=== PATIENT | female | born 1980 ===

== ENCOUNTER 2019-09-22 00:12 | Inpatient (IN) | payer SELFPAY ==
[2019-09-22] MEDS ORDERED: Nalbuphine 10 MG/1 ML Vial IVPUSH PRN (00:19)
[2019-09-22] MEDS ORDERED: Terbutaline 1 MG/ML SDV SUBCUT PRN (00:19)
[2019-09-22] MEDS ORDERED: Butorphanol 1 MG/ML SDV IVPUSH PRN (00:19)
[2019-09-22] MEDS ORDERED: Tranexamic Acid 1,000 MG in Sodium Chloride 0.9% 100 ML IV PRN (00:19)
[2019-09-22] MEDS ORDERED: Carboprost Tromethamine 250 MCG/1 ML Amp IM PRN (00:19)
[2019-09-22] MEDS ORDERED: Misoprostol 200 MCG Tab PO PRN (00:19)
[2019-09-22] MEDS ORDERED: Misoprostol 25 MCG (1/4 of 100 MCG) Tab VAG PRN ×2 (00:19)
[2019-09-22] MEDS ORDERED: Water For Irrigation,Sterile 1,000 ML Container IRR PRN (00:19)
[2019-09-22] MEDS ORDERED: Lidocaine 1% 50 ML MDV INJECT PRN (00:19)
[2019-09-22] MEDS ORDERED: Methylergonovine 0.2 MG/1 ML Amp IM PRN (00:19)
[2019-09-22] MEDS ORDERED: Sodium Chloride 0.9% 2.5 ML Syringe FLUSH PRN (00:25)
[2019-09-22] MEDS ORDERED: Sodium Chloride 0.9% 10 ML SDV IV PRN (00:25)
[2019-09-22] MEDS ORDERED: Sodium Chloride 0.9% 10 ML Syringe FLUSH PRN (00:25)
[2019-09-22] MEDS ORDERED: Oxytocin/0.9 % Sodium Chloride 30 UNIT/500 ML BAG IV SCH ×2 (00:30)
[2019-09-22] MEDS ORDERED: Lactated Ringers 1,000 ML IV SCH (00:30)
[2019-09-22] MEDS ORDERED: Misoprostol 25 MCG (1/4 of 100 MCG) Tab PO SCH (00:45)
[2019-09-22] MEDS ORDERED: hydrOXYzine Pamoate 25 MG Cap PO SCH (09:00)
--- NOTE | 2019-09-22 09:32 | PCM.LDHP ---
L&D History of Present Illness - General Date of Service: 09/22/19 Admit Problem/Dx: Patient Status Order with Admit Dx/Problem 09/22/19 00:20 Patient Status [ADT] Routine Admission Diagnosis/Problem Admission Diagnosis/Problem - planned 09/22/19 09:27 Mary is a 39 yo at 40.1 weeks gestation (OBI 09/21/2019) that presents today for elective IOL. O pos, RI, GBS neg, COVID neg. is at the bedside as support person and seismic interpreter per patient request. Pertinent history includes: AMA, obesity, infertility, IVF. NKDA. Medications: PNV, 81 mg aspirin. Patient denies any complaints or concerns at this time except intermittent contraction pain 11/03, lower abdomen. Patient denies LOF, vaginal bleeding; reports ample movement at this time. 09/22/19 09:31 Source of Information: Patient History Limitations: Reports: No Limitations - History of Present Illness Location, : Reports: Abdomen, Uterus Quality: Reports: Sharp Pain Score: 9 Improves with: Reports: Medication, Movement, Other (Hydrotherapy) Worsens with: Reports: Immobilization - Related Data Allergies/Adverse Reactions: Allergies Allergy/AdvReac Type Severity Reaction Status Date / Time No Known Allergies Allergy Verified 09/22/19 01:21 Home Medications: Home Meds Aspirin [Adult Low Dose Aspirin EC] 81 mg PO DAILY 09/22/19 [History] No122/Iron/Folic Acid [ Multi Tablet] 1 tab PO DAILY 09/22/19 [History] Past Medical History - Past Health History Medical/Surgical History: Denies Medical/Surgical History HEENT History: Reports: None Cardiovascular History: Reports: None Respiratory History: Reports: None Gastrointestinal History: Reports: None Genitourinary History: Reports: None 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: Other (See Below) : 1 Para: 0 LMP (Approximate): Other OB/BYN History: Hx of infertility; Hx of hysteroscopy Musculoskeletal History: Reports: None Neurological History: Reports: None Psychiatric History: Reports: None Endocrine/Metabolic History: Reports: Obesity/BMI 30+ Hematologic History: Reports: None Immunologic History: Reports: None Dermatologic History: Reports: None - Infectious Disease History Infectious Disease History: Reports: None - Past Surgical History Female Surgical History: Reports: Other (See Below) (Hysteroscopy; polyp removal) Social & Family History - Family History Family Medical History: Noncontributory Cardiac: Reports: Hypertension Other Cardiac Family History: Mother has hypertension - Tobacco Use Smoking Status *Q: Never Smoker Second Hand Smoke Exposure: No - Caffeine Use Caffeine Use: Reports: None - Alcohol Use Alcohol Use History: No - Recreational Drug Use Recreational Drug Use: No - Sexual History Sexual History: Reports: Sexually Active H&P Review of Systems - Review of Systems: Review Of Systems: Comprehensive ROS is negative, except as noted in HPI. General: Reports: No Symptoms HEENT: Reports: No Symptoms Pulmonary: Reports: No Symptoms Cardiovascular: Reports: No Symptoms Gastrointestinal: Reports: No Symptoms Genitourinary: Reports: No Symptoms Musculoskeletal: Reports: No Symptoms Skin: Reports: No Symptoms Psychiatric: Reports: No Symptoms Neurological: Reports: No Symptoms Hematologic/Lymphatic: Reports: No Symptoms Immunologic: Reports: No Symptoms L&D Exam - Exam Exam: See Below - Vital Signs Vital Signs: T 97.6, BP 139/97 (107), P 77, O2 100% on RA Weight: 529 lb 1.75 oz - OB Specific Fundal Height In cm: 41 Contraction Duration (sec): 60-80 Contraction Frequency (min): 2-4 Contraction Intensity: Mild to Moderate Movement: Active Heart Tones: Present Heart Tones per Min: 130 Heart Rate (FHR) Variability: Moderate (6-25 bmp) Presentation: Vertex - Alexander Score Alexander Score Cervix Position: Posterior Alexander Score Consistency: Soft Alexander Score Effacement: 51-70% Alexander Score Dilation: 1-2 cm Alexander Score 's Station: -3 Alexander Score Total: 5 - Exam General: Alert, Oriented, Cooperative HEENT: Conjunctiva Clear, Hearing Intact, Mucosa Moist & [place], Nares Patent, PERRLA Neck: Supple Lungs: Clear to Auscultation, Normal Respiratory Effort Cardiovascular: Regular Rate, Regular Rhythm GI/Abdominal Exam: Normal Bowel Sounds, Soft, Non-Tender, No Organomegaly, No Distention Rectal Exam: Normal Rectal Tone, Deferred Genitourinary: Normal external exam, Normal bimanual exam, Vaginal discharge (Bloody show/mucous, small) Back Exam: Normal Inspection, Full Range of Motion Extremities: Normal Inspection, Normal Range of Motion, Non-Tender, No Pedal Edema, Normal Capillary Refill Skin: Warm, Dry, Intact Neurological: Cranial Nerves Intact, Reflexes Equal Bilateral Psychiatric: Alert, Normal Affect, Normal Mood - Patient Data Lab Results Last 24 hrs: Laboratory Results - last 24 hr 09/22/19 09/22/19 09/22/19 Range/Units 00:40 00:40 00:45 WBC 9.19 (4.0-11.0) K/uL RBC 4.35 (4.30-5.90) M/uL Hgb 13.6 (12.0-16.0) g/dL Hct 41.2 (36.0-46.0) % MCV 94.7 (80.0-98.0) fL MCH 31.3 (27.0-32.0) pg MCHC 33.0 (31.0-37.0) g/dL RDW Std Deviation 48.0 (28.0-62.0) fl RDW Coeff of Shameka 14 (11.0-15.0) % Plt Count 172 (150-400) K/uL MPV 13.10 H (7.40-12.00) fL Nucleated RBC % 0.0 /100WBC Nucleated RBCs # 0 K/uL COVID-19 ([facility]) NEGATIVE (NEGATIVE) Blood Type O POSITIVE Antibody Screen NEGATIVE Result Diagrams: 09/22/19 00:40 - Problem List (1) Encounter for induction of labor SNOMED Code(s): 420376654 ICD Code: Z34.90 - ENCNTR FOR SUPRVSN OF NORMAL , UNSP, UNSP TRIMESTER Status: Acute Priority: High Current Visit: Yes (2) 40 weeks gestation of SNOMED Code(s): 12274094 ICD Code: Z3A.40 - 40 WEEKS GESTATION OF Status: Acute Priority: High Current Visit: Yes Problem List Initiated/Reviewed/Updated: Yes Orders Last 24hrs: Active Orders 24 hr Category Date Time Status Patient Status [ADT] Routine ADT 09/22/19 00:20 Active Communication Order [RC] ASDIRECTED Care 09/22/19 00:20 Active Communication Order [RC] ASDIRECTED Care 09/22/19 00:20 Active Communication Order [RC] ASDIRECTED Care 09/22/19 00:20 Active Heart Tones [RC] CONTINUOUS Care 09/22/19 00:20 Active Non Stress Test [RC] PER UNIT ROUTINE Care 09/22/19 00:20 Active May Shower [RC] ASDIRECTED Care 09/22/19 00:20 Active Notify Provider [RC] PRN Care 09/22/19 00:20 Active Notify Provider [RC] PRN Care 09/22/19 00:20 Active Notify Provider [RC] PRN Care 09/22/19 00:20 Active Notify Provider [RC] STAT Care 09/22/19 00:20 Active Oxygen Therapy [RC] ASDIRECTED Care 09/22/19 00:20 Active Up ad Marianela [RC] ASDIRECTED Care 09/22/19 00:20 Active Vaginal Exam [RC] PRN Care 09/22/19 00:20 Active Vital Signs [RC] PER UNIT ROUTINE Care 09/22/19 00:20 Active Regular Diet [DIET] Diet 09/22/19 Breakfast Active RPR (SYPHILIS SERO) W/ RFLX [REF] Routine Lab 09/22/19 00:40 Received Butorphanol [Stadol] Med 09/22/19 00:19 Active 1 mg IVPUSH Q1H PRN Carboprost Tromethamine [Hemabate DS] Med 09/22/19 00:19 Active 250 mcg IM ASDIRECTED PRN Lactated Ringers [Ringers, Lactated] 1,000 ml Med 09/22/19 00:30 Active IV ASDIRECTED Lidocaine 1% [Xylocaine 1%] Med 09/22/19 00:19 Active 50 ml INJECT ONETIME PRN Methylergonovine [Methergine] Med 09/22/19 00:19 Active 0.2 mg IM ASDIRECTED PRN Nalbuphine [Nubain] Med 09/22/19 00:19 Active 10 mg IVPUSH Q1H PRN Oxytocin/0.9 % Sodium Chloride [Oxytocin 30 Unit/500 ML Med 09/22/19 00:30 Active -NS] 30 unit in 500 ml IV TITRATE Oxytocin/0.9 % Sodium Chloride [Oxytocin 30 Unit/500 ML Med 09/22/19 00:30 Active -NS] 30 unit in 500 ml IV TITRATE Sodium Chloride 0.9% [Normal Saline] Med 09/22/19 00:25 Active 10 ml IV ASDIRECTED PRN Sodium Chloride 0.9% [Saline Flush] Med 09/22/19 00:25 Active 10 ml FLUSH ASDIRECTED PRN Sodium Chloride 0.9% [Saline Flush] Med 09/22/19 00:25 Active 2.5 ml FLUSH ASDIRECTED PRN Terbutaline [Brethine] Med 09/22/19 00:19 Active 0.25 mg SUBCUT ASDIRECTED PRN Tranexamic Acid [Cyklokapron] 1,000 mg Med 09/22/19 00:19 Active Sodium Chloride 0.9% [Normal Saline] 100 ml IV ONETIME Water For Irrigation,Sterile [Sterile Water for Med 09/22/19 00:19 Active Irrigation] 1,000 ml IRR ASDIRECTED PRN hydrOXYzine pamoate [Vistaril] Med 09/22/19 09:00 Active 50 mg PO .ONCE miSOPROStoL [Cytotec] Med 09/22/19 00:19 Active 200 mcg PO ONETIME PRN miSOPROStoL [Cytotec] Med 09/22/19 00:45 Active 25 mcg PO Q4H miSOPROStoL [Cytotec] Med 09/22/19 00:19 Active 25 mcg VAG ONETIME PRN miSOPROStoL [Cytotec] Med 09/22/19 00:19 Active 25 mcg VAG Q4H PRN Scalp Electrode [WOMSER] Per Unit Routine Oth 09/22/19 00:20 Ordered Medication Administration Instruction [OM.PC] Q3H Oth 09/22/19 00:30 Ordered Peripheral IV Insertion Adult [OM.PC] Routine Oth 09/22/19 00:20 Ordered Resuscitation Status Routine Resus Stat 09/22/19 00:19 Ordered Medication Orders Butorphanol Tartrate (Stadol) 1 mg IVPUSH Q1H PRN PRN Reason: Pain Carboprost Tromethamine (Hemabate Ds) 250 mcg IM ASDIRECTED PRN PRN Reason: Post Hemorrhage Hydroxyzine Pamoate (Vistaril) 50 mg PO .ONCE HOLLI Oxytocin/Sodium Chloride (Oxytocin 30 Unit/500 Ml-Ns) 30 unit in 500 mls @ 500 mls/hr IV TITRATE HOLLI Tranexamic Acid 1,000 mg/ (Sodium Chloride) 110 mls @ 660 mls/hr IV ONETIME PRN PRN Reason: Bleeding Oxytocin/Sodium Chloride (Oxytocin 30 Unit/500 Ml-Ns) 30 unit in 500 mls @ 2 mls/hr IV TITRATE HOLLI; Protocol Lactated Ringer's (Ringers, Lactated) 1,000 mls @ 150 mls/hr IV ASDIRECTED HOLLI Lidocaine HCl (Xylocaine 1%) 50 ml INJECT ONETIME PRN PRN Reason: Laceration repair Methylergonovine Maleate (Methergine) 0.2 mg IM ASDIRECTED PRN PRN Reason: Post Hemorrhage Misoprostol (Cytotec) 200 mcg PO ONETIME PRN PRN Reason: Post Hemorrhage Misoprostol (Cytotec) 25 mcg VAG ONETIME PRN PRN Reason: Cervical Ripening Last Admin: 09/22/19 01:51 Dose: 25 mcg Documented by: LUKE Misoprostol (Cytotec) 25 mcg VAG Q4H PRN PRN Reason: Cervical Ripening Last Admin: 09/22/19 05:50 Dose: 25 mcg Documented by: LUKE Misoprostol (Cytotec) 25 mcg PO Q4H HOLLI Nalbuphine HCl (Nubain) 10 mg IVPUSH Q1H PRN PRN Reason: Pain (severe 7-10) Sodium Chloride (Saline Flush) 10 ml FLUSH ASDIRECTED PRN PRN Reason: Keep Vein Open Sodium Chloride (Saline Flush) 2.5 ml FLUSH ASDIRECTED PRN PRN Reason: Keep Vein Open Sodium Chloride (Normal Saline) 10 ml IV ASDIRECTED PRN PRN Reason: IV Use Sterile Water (Sterile Water For Irrigation) 1,000 ml IRR ASDIRECTED PRN PRN Reason: delivery Terbutaline Sulfate (Brethine) 0.25 mg SUBCUT ASDIRECTED PRN PRN Reason: Tacysystole Assessment/Plan Comment:: SVE 1-2/70/-3 per RN. Vertex via Tawanda's today, confirmed vertex via TAUS in office 09/20/2019. FHR Cat I, contraction pattern adequate at this time, intermittent monitoring appropriate at this time. Patient may ambulate, eat, hydrate, and hydrotherapy as desired. RN to give Vistaril 50 mg for therapeutic rest in early labor. Continue with cytotec to pitocin induction of labor per orders. May receive epidural between 5-[address] Cline notified and agreeable to POC.
[2019-09-22] MEDS ORDERED: Bupivicaine/fentaNYL/NS 250 ML ONE (11:39)
--- NOTE | 2019-09-22 12:37 | PCM.PREANE ---
Preanesthetic Assessment - Procedure Proposed Procedure: continuous labor epidural - Anesthesia/Transfusion/Family Hx Anesthesia History: No Prior Anesthesia Transfusion History: No Prior Transfusion(s) - Review of Systems General: No Symptoms Pulmonary: No Symptoms Cardiovascular: No Symptoms Gastrointestinal: No Symptoms Neurological: No Symptoms Other: Reports: None - Physical Assessment Height: 5 ft 8.11 in Weight: 108.862 kg ASA Class: 2 Mental Status: Alert & Oriented x3 Dentition: Reports: Normal Dentition ROM/Head Extension: Full Lungs: Clear to Auscultation, Normal Respiratory Effort Cardiovascular: Regular Rate, Regular Rhythm - Lab Values: Laboratory Last Values WBC 9.19 K/uL (4.0-11.0) 09/22/19 00:40 RBC 4.35 M/uL (4.30-5.90) 09/22/19 00:40 Hgb 13.6 g/dL (12.0-16.0) 09/22/19 00:40 Hct 41.2 % (36.0-46.0) 09/22/19 00:40 MCV 94.7 fL (80.0-98.0) 09/22/19 00:40 MCH 31.3 pg (27.0-32.0) 09/22/19 00:40 MCHC 33.0 g/dL (31.0-37.0) 09/22/19 00:40 RDW Std Deviation 48.0 fl (28.0-62.0) 09/22/19 00:40 RDW Coeff of Shameka 14 % (11.0-15.0) 09/22/19 00:40 Plt Count 172 K/uL (150-400) 09/22/19 00:40 MPV 13.10 fL (7.40-12.00) H 09/22/19 00:40 Nucleated RBC % 0.0 /100WBC 09/22/19 00:40 Nucleated RBCs # 0 K/uL 09/22/19 00:40 COVID-19 ([facility]) NEGATIVE (NEGATIVE) 09/22/19 00:45 Blood Type O POSITIVE 09/22/19 00:40 Antibody Screen NEGATIVE 09/22/19 00:40 - Allergies Allergies/Adverse Reactions: Allergies Allergy/AdvReac Type Severity Reaction Status Date / Time No Known Allergies Allergy Verified 09/22/19 01:21 - Acknowledgements Anesthesia Type Planned: Epidural Pt an Appropriate Candidate for the Planned Anesthesia: Yes Alternatives and Risks of Anesthesia Discussed w Pt/Guardian: Yes Pt/Guardian Understands and Agrees with Anesthesia Plan: Yes PreAnesthesia Questionnaire - Past Health History Medical/Surgical History: Denies Medical/Surgical History HEENT History: Reports: None Cardiovascular History: Reports: None Respiratory History: Reports: None 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: , Other (See Below) : 1 Para: 0 Other OB/BYN History: Hx of infertility; Hx of hysteroscopy Endocrine/Metabolic History: Reports: Obesity/BMI 30+ - Past Surgical History Head Surgeries/Procedures: Reports: None Female Surgical History: Reports: Other (See Below) (Hysteroscopy; polyp removal) - SUBSTANCE USE Smoking Status *Q: Never Smoker Tobacco Use Within Last Twelve Months: No Second Hand Smoke Exposure: No Recreational Drug Use History: No - HOME MEDS Home Medications: Home Meds Aspirin [Adult Low Dose Aspirin EC] 81 mg PO DAILY 09/22/19 [History] No122/Iron/Folic Acid [ Multi Tablet] 1 tab PO DAILY 09/22/19 [History] - CURRENT (IN HOUSE) MEDS Current Meds: Current Medications Butorphanol Tartrate (Stadol) 1 mg IVPUSH Q1H PRN PRN Reason: Pain Carboprost Tromethamine (Hemabate Ds) 250 mcg IM ASDIRECTED PRN PRN Reason: Post Hemorrhage Hydroxyzine Pamoate (Vistaril) 50 mg PO .ONCE HOLLI Last Admin: 09/22/19 09:34 Dose: 50 mg Documented by: Oxytocin/Sodium Chloride (Oxytocin 30 Unit/500 Ml-Ns) 30 unit in 500 mls @ 500 mls/hr IV TITRATE HOLLI Tranexamic Acid 1,000 mg/ (Sodium Chloride) 110 mls @ 660 mls/hr IV ONETIME PRN PRN Reason: Bleeding Oxytocin/Sodium Chloride (Oxytocin 30 Unit/500 Ml-Ns) 30 unit in 500 mls @ 2 mls/hr IV TITRATE HOLLI; Protocol Lactated Ringer's (Ringers, Lactated) 1,000 mls @ 150 mls/hr IV ASDIRECTED HOLLI Last Admin: 09/22/19 11:35 Dose: 150 mls/hr Documented by: Lidocaine HCl (Xylocaine 1%) 50 ml INJECT ONETIME PRN PRN Reason: Laceration repair Methylergonovine Maleate (Methergine) 0.2 mg IM ASDIRECTED PRN PRN Reason: Post Hemorrhage Misoprostol (Cytotec) 200 mcg PO ONETIME PRN PRN Reason: Post Hemorrhage Misoprostol (Cytotec) 25 mcg VAG ONETIME PRN PRN Reason: Cervical Ripening Last Admin: 09/22/19 01:51 Dose: 25 mcg Documented by: Misoprostol (Cytotec) 25 mcg VAG Q4H PRN PRN Reason: Cervical Ripening Last Admin: 09/22/19 05:50 Dose: 25 mcg Documented by: Misoprostol (Cytotec) 25 mcg PO Q4H HOLLI Nalbuphine HCl (Nubain) 10 mg IVPUSH Q1H PRN PRN Reason: Pain (severe 7-10) Last Admin: 09/22/19 11:31 Dose: 10 mg Documented by: Sodium Chloride (Saline Flush) 10 ml FLUSH ASDIRECTED PRN PRN Reason: Keep Vein Open Sodium Chloride (Saline Flush) 2.5 ml FLUSH ASDIRECTED PRN PRN Reason: Keep Vein Open Sodium Chloride (Normal Saline) 10 ml IV ASDIRECTED PRN PRN Reason: IV Use Sterile Water (Sterile Water For Irrigation) 1,000 ml IRR ASDIRECTED PRN PRN Reason: delivery Terbutaline Sulfate (Brethine) 0.25 mg SUBCUT ASDIRECTED PRN PRN Reason: Tacysystole Discontinued Medications Fentanyl/Bupivacaine HCl (Fentanyl/Bupivacaine/Ns 2 Mcg-0.125% 250 Ml) Confirm Administered Dose 250 mls @ as directed .ROUTE .[facility] Stop: 09/22/19 11:40
[2019-09-22] MEDS ORDERED: Docusate Sodium 100 MG Cap PO PRN (14:28)
[2019-09-22] MEDS ORDERED: Bisacodyl 10 MG Supp RECTAL PRN (14:28)
[2019-09-22] MEDS ORDERED: Acetaminophen 500 MG Tab PO PRN ×2 (14:28)
[2019-09-22] MEDS ORDERED: oxyCODONE 5 MG Tab PO PRN (14:28)
[2019-09-22] MEDS ORDERED: Benzocaine/Menthol 20%-0.5% Spray 78 GM Cannister TOP PRN (14:28)
[2019-09-22] MEDS ORDERED: Lanolin 100% Cream 7 GM Tube TOP PRN (14:28)
[2019-09-22] MEDS ORDERED: Witch Hazel Medicated Pads 40/Jar TOP PRN (14:28)
[2019-09-22] MEDS ORDERED: Ibuprofen 400 MG Tab PO PRN (14:28)
--- NOTE | 2019-09-22 15:08 | PCM.DEL ---
L & D Note - General Info Date of Service: 09/22/19 Mother's Due Date: 09/21/19 - Delivery Note Labor: Augmented by Oxytocin Cervical Ripening Method: Misoprostil Delivery Outcome: Livebirth Infant Delivery Method: Spontaneous Vaginal Delivery-Single Delivery Mode: Spontaneous Presentation: Right Occiput Anterior (KASEY) Nuchal Cord: None Anesthesia Type: Epidural Episiotomy Type: None Laceration: 2nd Degree Suture type: Vicryl Suture size: 3-0 Placenta: Intact, Spontaneous Cord: 3 Vessels Estimated Blood Loss: 350 Resuscitation Needed: No [place]: Bulb Syringe, Stimulated, Warmed, [place] Used Score 1 min: 8 Score 5 min: 8 Second Stage Interventions: Reports: Second Nurse Reviewed Heart Tones, Encouragement Given, Pushing Effectively, Pushing, Knee Chest Position, Pushing, Stirrups/Leg Supports Delivery Comments (Free Text/Narrative):: Mary is a 39 yo at 40.1 weeks gestation (OBI 09/21/2019) S/P uncomplicated of term, viable NBM. Dr. Cline on standby at desk due to prolonged decelerations to 80s while pushing. NBM place to maternal abdomen, warmed, dried, stimulated by RN. Umbilical cord clamped x2 and cut by CNM within 20 seconds after , NBM brought to warmer for evaluation due to prolonged decelerations while pushing. Placenta birthed spontaneously < 10 min after of NBM, [place], intact, 3VC. Uterus firm @ U, small-moderate vaginal bleeding. 2nd degree perineal laceration repaired with 3.[address], hemostatic. Bilateral sanket-urethral superficial skin tears noted, not repaired, oozing but not frankly bleeding. RN to notify provider if problems arise and repair is necessary. NBM to maternal chest, swaddled, both stable and resting quietly. Induction Criteria - Alexander Score Alexander Score Dilation: 1-2 cm Alexander Score Effacement: 60-70% Alexander Score 's Station: -3 Alexander Score Consistency: Soft Alexander Score Cervix Position: Posterior Alexander Score Total: 5 Alexander Score Presenting Part: Reports: Cephalic - Induction Gestational Age >/= 39 wks: Yes Estimated Pelvis: Reports: Adequate Reassuring Monitoring Strip: Yes Absence of Tachy Systole: No - General Info Date of Service: 09/22/19 Admission Dx/Problem (Free Text): Patient Status Order with Admit Dx/Problem 09/22/19 00:20 Patient Status [ADT] Routine Admission Diagnosis/Problem Admission Diagnosis/Problem - planned 09/22/19 09:27 Mary is a 39 yo at 40.1 weeks gestation (OBI 09/21/2019) that presents today for elective IOL. O pos, RI, GBS neg, COVID neg. 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 Pertinent history includes: AMA, obesity, infertility, IVF. NKDA. Medications: PNV, 81 mg aspirin. Patient denies any complaints or concerns at this time except intermittent contraction pain 11/03, lower abdomen. Patient denies LOF, vaginal bleeding; reports ample movement at this time. 09/22/19 09:31 Functional Status: Reports: Pain Controlled - Review of Systems General: Reports: No Symptoms HEENT: Reports: No Symptoms Pulmonary: Reports: No Symptoms Cardiovascular: Reports: No Symptoms Gastrointestinal: Reports: Abdominal Pain (Intermittent uterine cramping/contractions. Small to moderate vaginal bleeding) Genitourinary: Reports: No Symptoms Musculoskeletal: Reports: No Symptoms Skin: Reports: No Symptoms Neurological: Reports: No Symptoms Psychiatric: Reports: No Symptoms - Patient Data Vitals - Most Recent: VSS, afebrile. Weight - Most Recent: 240 lb Lab Results Last 24 Hours: Laboratory Results - last 24 hr 09/22/19 09/22/19 09/22/19 Range/Units 00:40 00:40 00:45 WBC 9.19 (4.0-11.0) K/uL RBC 4.35 (4.30-5.90) M/uL Hgb 13.6 (12.0-16.0) g/dL Hct 41.2 (36.0-46.0) % MCV 94.7 (80.0-98.0) fL MCH 31.3 (27.0-32.0) pg MCHC 33.0 (31.0-37.0) g/dL RDW Std Deviation 48.0 (28.0-62.0) fl RDW Coeff of Shameka 14 (11.0-15.0) % Plt Count 172 (150-400) K/uL MPV 13.10 H (7.40-12.00) fL Nucleated RBC % 0.0 /100WBC Nucleated RBCs # 0 K/uL COVID-19 (KVNG) NEGATIVE (NEGATIVE) Blood Type O POSITIVE Antibody Screen NEGATIVE Med Orders - Current: Current Medications Acetaminophen (Tylenol Extra Strength) 500 mg PO Q4H PRN PRN Reason: Pain Acetaminophen (Tylenol Extra Strength) 1,000 mg PO Q4H PRN PRN Reason: Pain Benzocaine/Menthol (Dermoplast Pain Relief 20%-0.5% [place]) 78 gm TOP ASDIRECTED PRN PRN Reason: Perineal Comfort Measure Bisacodyl (Dulcolax) 10 mg RECTAL ONETIME PRN PRN Reason: Constipation Docusate Sodium (Colace) 100 mg PO BID PRN PRN Reason: Constipation Emollient Ointment (Lansinoh Hpa) 0 gm TOP ASDIRECTED PRN PRN Reason: Sore Nipples Ibuprofen (Motrin) 400 mg PO Q4H PRN PRN Reason: Pain Ibuprofen (Motrin) 800 mg PO Q6H PRN PRN Reason: Pain Oxycodone HCl (Oxycodone) 5 mg PO Q2H PRN PRN Reason: Pain Witch Regla (Tucks) 1 pad TOP ASDIRECTED PRN PRN Reason: comfort care Discontinued Medications Butorphanol Tartrate (Stadol) 1 mg IVPUSH Q1H PRN PRN Reason: Pain Carboprost Tromethamine (Hemabate Ds) 250 mcg IM ASDIRECTED PRN PRN Reason: Post Hemorrhage Hydroxyzine Pamoate (Vistaril) 50 mg PO .ONCE HOLLI Last Admin: 09/22/19 09:34 Dose: 50 mg Documented by: Oxytocin/Sodium Chloride (Oxytocin 30 Unit/500 Ml-Ns) 30 unit in 500 mls @ 500 mls/hr IV TITRATE HOLLI Tranexamic Acid 1,000 mg/ (Sodium Chloride) 110 mls @ 660 mls/hr IV ONETIME PRN PRN Reason: Bleeding Oxytocin/Sodium Chloride (Oxytocin 30 Unit/500 Ml-Ns) 30 unit in 500 mls @ 2 mls/hr IV TITRATE HOLLI; Protocol Last Admin: 09/22/19 13:26 Dose: 2 munits/min, 2 mls/hr Documented by: Lactated Ringer's (Ringers, Lactated) 1,000 mls @ 150 mls/hr IV ASDIRECTED HOLLI Last Admin: 09/22/19 11:35 Dose: 150 mls/hr Documented by: Fentanyl/Bupivacaine HCl (Fentanyl/Bupivacaine/Ns 2 Mcg-0.125% 250 Ml) Confirm Administered Dose 250 mls @ as directed .ROUTE .STK-MED ONE Stop: 09/22/19 11:40 Lidocaine HCl (Xylocaine 1%) 50 ml INJECT ONETIME PRN PRN Reason: Laceration repair Methylergonovine Maleate (Methergine) 0.2 mg IM ASDIRECTED PRN PRN Reason: Post Hemorrhage Misoprostol (Cytotec) 200 mcg PO ONETIME PRN PRN Reason: Post Hemorrhage Misoprostol (Cytotec) 25 mcg VAG ONETIME PRN PRN Reason: Cervical Ripening Last Admin: 09/22/19 01:51 Dose: 25 mcg Documented by: Misoprostol (Cytotec) 25 mcg VAG Q4H PRN PRN Reason: Cervical Ripening Last Admin: 09/22/19 05:50 Dose: 25 mcg Documented by: Misoprostol (Cytotec) 25 mcg PO Q4H HOLLI Nalbuphine HCl (Nubain) 10 mg IVPUSH Q1H PRN PRN Reason: Pain (severe 7-10) Last Admin: 09/22/19 11:31 Dose: 10 mg Documented by: Sodium Chloride (Saline Flush) 10 ml FLUSH ASDIRECTED PRN PRN Reason: Keep Vein Open Sodium Chloride (Saline Flush) 2.5 ml FLUSH ASDIRECTED PRN PRN Reason: Keep Vein Open Sodium Chloride (Normal Saline) 10 ml IV ASDIRECTED PRN PRN Reason: IV Use Sterile Water (Sterile Water For Irrigation) 1,000 ml IRR ASDIRECTED PRN PRN Reason: delivery Terbutaline Sulfate (Brethine) 0.25 mg SUBCUT ASDIRECTED PRN PRN Reason: Tacysystole - Exam General: Alert, Oriented, Cooperative, No Acute Distress HEENT: Pupils Equal, Pupils Reactive, Mucous Membr. Moist/[place] Neck: Supple Lungs: Clear to Auscultation, Normal Respiratory Effort Cardiovascular: Regular Rate, Regular Rhythm GI/Abdominal Exam: Normal Bowel Sounds, Soft, Non-Tender, No Organomegaly, No Distention, No Mass (Female) Exam: Enlarged Uterus ( uterus, firm @U), Vaginal Bleeding (Small to moderate rubra lochia) Back Exam: Normal Inspection, Full Range of Motion Extremities: Normal Inspection, Normal Range of Motion, Non-Tender, No Pedal Edema, Normal Capillary Refill Skin: Warm, Dry, Intact Wound/Incisions: No Drainage (Edematous, approximated, hemostatic) Neurological: No New Focal Deficit, Other (Epidural BLE) Psy/Mental Status: Alert, Normal Affect, Normal Mood - Problem List & Annotations (1) (normal spontaneous vaginal delivery) SNOMED Code(s): 42737944, 684249845 Code(s): O80 - ENCOUNTER FOR FULL-TERM UNCOMPLICATED DELIVERY Status: Acute Priority: High Current Visit: Yes (2) Lactating mother SNOMED Code(s): 781065400, 643015584 Code(s): Z39.1 - ENCOUNTER FOR CARE AND EXAMINATION OF LACTATING MOTHER Status: Acute Priority: High Current Visit: Yes - Problem List Review Problem List Initiated/Reviewed/Updated: Yes - My Orders Last 24 Hours: My Active Orders 09/22/19 14:28 Patient Status [ADT] Routine May Shower [RC] ASDIRECTED Up ad Marianela [RC] ASDIRECTED Vital Signs [RC] PER UNIT ROUTINE Acetaminophen [Tylenol Extra Strength] 1,000 mg PO Q4H PRN Acetaminophen [Tylenol Extra Strength] 500 mg PO Q4H PRN Benzocaine/Menthol [Dermoplast Pain Relief 20%-0.5% [place]] 78 gm TOP ASDIRECTED PRN Docusate Sodium [Colace] 100 mg PO BID PRN Ibuprofen [Motrin] 400 mg PO Q4H PRN Ibuprofen [Motrin] 800 mg PO Q6H PRN Lanolin [Lansinoh HPA] See Dose Instructions TOP ASDIRECTED PRN bisacodyL [Dulcolax] 10 mg RECTAL ONETIME PRN oxyCODONE 5 mg PO Q2H PRN witch Regla [Tucks] 1 pad TOP ASDIRECTED PRN Assess Lochia [WOMSER] Per Unit Routine Assess Uterine Involution [WOMSER] Per Unit Routine Ice Therapy [OM.PC] Per Unit Routine Perineal Care [OM.PC] Per Unit Routine Peripheral IV Discontinue [OM.PC] Routine Sitz Bath [OM.PC] Per Unit Routine Resuscitation Status Routine 09/22/19 14:29 Cooling Warming Measures [RC] ASDIRECTED 09/23/19 05:11 HEMOGLOBIN/HEMATOCRIT,HH [HEME] Timed - Plan Plan:: Successful elective IOL with uncomplicated of viable, term NBM. Continue to vaginal POC, see new orders. Dr. Cline notified and agreeable to POC.
[2019-09-22] MEDS: Ibuprofen 800 MG Tab PO PRN (16:59)
--- NOTE | 2019-09-23 08:07 | PCM.DCSUM1 ---
Discharge Summary - Hospital Course Free Text/Narrative:: Discharge home with baby. Follow up in the clinic in 6 weeks for routine visit. Diagnosis: Stroke: No Modified [place] Scale: No Symptoms at All Modified [place] Scale Score: 0 - Discharge Data Discharge Date: 09/23/19 Discharge Disposition: Home, Self-Care 01 Condition: Good - Referral to Home Health Primary Care Physician: PCP None - Patient Instructions Diet: Regular Diet as Tolerated, Drink 8-10+ Glasses/Day Activity: As Tolerated, No Strenuous Activities, Rest and Relax Today Driving: May Drive Today Showering/Bathing: May Shower Wound/Incision Care: Keep Operative Site/Wound Site Clean and Dry Notify Provider of: Fever, Increased Pain, Swelling and Redness, Drainage, Nausea and/or Vomiting - Discharge Plan *PRESCRIPTION DRUG MONITORING PROGRAM REVIEWED*: Not Applicable *COPY OF PRESCRIPTION DRUG MONITORING REPORT IN PATIENT SONA: Not Applicable Prescriptions/Med Rec: Ibuprofen [Motrin] 800 mg PO Q6H PRN #90 tablet PRN Reason: Pain Home Medications: Home Meds Aspirin [Adult Low Dose Aspirin EC] 81 mg PO DAILY 09/22/19 [History] No122/Iron/Folic Acid [ Multi Tablet] 1 tab PO DAILY 09/22/19 [History] Ibuprofen [Motrin] 800 mg PO Q6H PRN #90 tablet 09/23/19 [Rx] Oxygen Therapy Mode: Room Air Referrals: [facility] [Outside] Seda Barrios CNM [Mid-] - 11/03/19 3:30 pm - Discharge Summary/Plan Comment DC Time >30 min.: Yes - General Info Date of Service: 09/23/19 Admission Dx/Problem (Free Text: Patient Status Order with Admit Dx/Problem 09/22/19 00:20 Patient Status [ADT] Routine Admission Diagnosis/Problem Admission Diagnosis/Problem - planned 09/22/19 09:27 Mary is a 39 yo at 40.1 weeks gestation (OBI 09/21/2019) that presents today for elective IOL. O pos, RI, GBS neg, COVID neg. 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 Pertinent history includes: AMA, obesity, infertility, IVF. NKDA. Medications: PNV, 81 mg aspirin. Patient denies any complaints or concerns at this time except intermittent contraction pain 11/03, lower abdomen. Patient denies LOF, vaginal bleeding; reports ample movement at this time. 09/22/19 09:31 Functional Status: Reports: Pain Controlled, Tolerating Diet, Ambulating, Urinating - Review of Systems General: Reports: No Symptoms HEENT: Reports: No Symptoms Pulmonary: Reports: No Symptoms Cardiovascular: Reports: No Symptoms Gastrointestinal: Reports: No Symptoms Genitourinary: Reports: No Symptoms Musculoskeletal: Reports: No Symptoms Skin: Reports: No Symptoms Neurological: Reports: No Symptoms Psychiatric: Reports: No Symptoms - Patient Data Vitals - Most Recent: Last Vital Signs Temp 98.1 F 09/23/19 05:00 Pulse 81 09/23/19 05:00 Resp 17 09/23/19 05:00 BP 130/77 09/23/19 05:00 Pulse Ox 96 09/23/19 05:00 Weight - Most Recent: 240 lb Lab Results - Last 24 hrs: Laboratory Results - last 24 hr 09/23/19 Range/Units 06:08 Hgb 10.5 L (12.0-16.0) g/dL Hct 31.5 L (36.0-46.0) % Med Orders - Current: Current Medications Acetaminophen (Tylenol Extra Strength) 500 mg PO Q4H PRN PRN Reason: Pain Acetaminophen (Tylenol Extra Strength) 1,000 mg PO Q4H PRN PRN Reason: Pain Last Admin: 09/22/19 17:00 Dose: 1,000 mg Documented by: Benzocaine/Menthol (Dermoplast Pain Relief 20%-0.5% [place]) 78 gm TOP ASDIRECTED PRN PRN Reason: Perineal Comfort Measure Bisacodyl (Dulcolax) 10 mg RECTAL ONETIME PRN PRN Reason: Constipation Docusate Sodium (Colace) 100 mg PO BID PRN PRN Reason: Constipation Emollient Ointment (Lansinoh Hpa) 0 gm TOP ASDIRECTED PRN PRN Reason: Sore Nipples Ibuprofen (Motrin) 400 mg PO Q4H PRN PRN Reason: Pain Ibuprofen (Motrin) 800 mg PO Q6H PRN PRN Reason: Pain Last Admin: 09/22/19 16:59 Dose: 800 mg Documented by: Oxycodone HCl (Oxycodone) 5 mg PO Q2H PRN PRN Reason: Pain Witch Regla (Tucks) 1 pad TOP ASDIRECTED PRN PRN Reason: comfort care Discontinued Medications Butorphanol Tartrate (Stadol) 1 mg IVPUSH Q1H PRN PRN Reason: Pain Carboprost Tromethamine (Hemabate Ds) 250 mcg IM ASDIRECTED PRN PRN Reason: Post Hemorrhage Hydroxyzine Pamoate (Vistaril) 50 mg PO .ONCE HOLLI Last Admin: 09/22/19 09:34 Dose: 50 mg Documented by: Oxytocin/Sodium Chloride (Oxytocin 30 Unit/500 Ml-Ns) 30 unit in 500 mls @ 500 mls/hr IV TITRATE HOLLI Tranexamic Acid 1,000 mg/ (Sodium Chloride) 110 mls @ 660 mls/hr IV ONETIME PRN PRN Reason: Bleeding Oxytocin/Sodium Chloride (Oxytocin 30 Unit/500 Ml-Ns) 30 unit in 500 mls @ 2 mls/hr IV TITRATE HOLLI; Protocol Last Admin: 09/22/19 13:26 Dose: 2 munits/min, 2 mls/hr Documented by: Lactated Ringer's (Ringers, Lactated) 1,000 mls @ 150 mls/hr IV ASDIRECTED HOLLI Last Admin: 09/22/19 11:35 Dose: 150 mls/hr Documented by: Fentanyl/Bupivacaine HCl (Fentanyl/Bupivacaine/Ns 2 Mcg-0.125% 250 Ml) Confirm Administered Dose 250 mls @ as directed .ROUTE .[facility]-MED ONE Stop: 09/22/19 11:40 Lidocaine HCl (Xylocaine 1%) 50 ml INJECT ONETIME PRN PRN Reason: Laceration repair Methylergonovine Maleate (Methergine) 0.2 mg IM ASDIRECTED PRN PRN Reason: Post Hemorrhage Misoprostol (Cytotec) 200 mcg PO ONETIME PRN PRN Reason: Post Hemorrhage Misoprostol (Cytotec) 25 mcg VAG ONETIME PRN PRN Reason: Cervical Ripening Last Admin: 09/22/19 01:51 Dose: 25 mcg Documented by: Misoprostol (Cytotec) 25 mcg VAG Q4H PRN PRN Reason: Cervical Ripening Last Admin: 09/22/19 05:50 Dose: 25 mcg Documented by: Misoprostol (Cytotec) 25 mcg PO Q4H HOLLI Nalbuphine HCl (Nubain) 10 mg IVPUSH Q1H PRN PRN Reason: Pain (severe 7-10) Last Admin: 09/22/19 11:31 Dose: 10 mg Documented by: Sodium Chloride (Saline Flush) 10 ml FLUSH ASDIRECTED PRN PRN Reason: Keep Vein Open Sodium Chloride (Saline Flush) 2.5 ml FLUSH ASDIRECTED PRN PRN Reason: Keep Vein Open Sodium Chloride (Normal Saline) 10 ml IV ASDIRECTED PRN PRN Reason: IV Use Sterile Water (Sterile Water For Irrigation) 1,000 ml IRR ASDIRECTED PRN PRN Reason: delivery Terbutaline Sulfate (Brethine) 0.25 mg SUBCUT ASDIRECTED PRN PRN Reason: Tacysystole - Exam General: Reports: Alert, Oriented, Cooperative, No Acute Distress Lungs: Reports: Normal Respiratory Effort Cardiovascular: Reports: Regular Rate, Regular Rhythm GI/Abdominal Exam: Soft, Non-Tender (Female) Exam: Deferred Rectal (Female) Exam: Deferred Back Exam: Reports: Normal Inspection, Full Range of Motion Extremities: Normal Inspection, Normal Range of Motion, Non-Tender, Normal Capillary Refill Skin: Reports: Warm, Dry, Intact Wound/Incisions: Reports: Healing Well Neurological: Reports: No New Focal Deficit, Normal Gait, Normal Speech, Normal Tone, Strength Equal Bilateral, Sensation Intact Psy/Mental Status: Reports: Alert, Normal Affect, Normal Mood
[2019-09-23] MEDS: Ibuprofen 800 MG Tab PO PRN (08:29)
--- NOTE | 2019-09-23 09:23 | PCM48HPAN ---
Post Anesthesia Note - EVALUATION WITHIN 48HRS OF ANESTHETIC Vital Signs in Normal Range: Yes Patient Participated in Evaluation: Yes Respiratory Function Stable: Yes Airway Patent: Yes Cardiovascular Function Stable: Yes Hydration Status Stable: Yes Pain Control Satisfactory: Yes Nausea and Vomiting Control Satisfactory: Yes Mental Status Recovered: Yes Vital Signs: Last Vital Signs Temp 98.2 F 09/23/19 08:00 Pulse 78 09/23/19 08:00 Resp 18 09/23/19 08:00 BP 122/77 09/23/19 08:00 Pulse Ox 98 09/23/19 08:00
== END 2019-09-23 16:45 | disposition home or self-care (01) | DRG 807 ==
LOC: MW.OBCHECK 00:12 → MW.OB 00:20 → OBSVTOIN 13:57 → MW.OB 17:56
PROVIDERS: ADMIT Obstetrics & Gynecology; ATTEND Obstetrics & Gynecology
PROC: 10E0XZZ Delivery of Products of Conception, External Approach (ICD-10-PCS; principal; 2019-09-22)
PROC: 0KQM0ZZ Repair Perineum Muscle, Open Approach (ICD-10-PCS; 2019-09-22)
PROC: 10907ZC Drainage of Amniotic Fluid, Therapeutic from Products of Conception, Via Natural or Artificial Opening (ICD-10-PCS; 2019-09-22)
PROC: 3E0P7VZ Introduction of Hormone into Female Reproductive, Via Natural or Artificial Opening (ICD-10-PCS; 2019-09-22)
PROC: 3E0R3BZ Introduction of Anesthetic Agent into Spinal Canal, Percutaneous Approach (ICD-10-PCS; 2019-09-22)
DX: O99.214 Obesity complicating childbirth (principal); Z37.0 Single live birth; Z3A.40 40 weeks gestation of pregnancy; E66.9 Obesity, unspecified; Z79.82 Long term (current) use of aspirin; O70.1 Second degree perineal laceration during delivery; Z11.59 Encounter for screening for other viral diseases
CPT/HCPCS: 36415; 59025; 59409; 85014; 85018; 85027; 86592; 86850; 86900; 86901; A9270-GY; J2300; J2590; J7120; U0002